=== PATIENT | female | born 2000 | race African-American/Black ===

== ENCOUNTER 2022-12-26 11:36 | Outpatient (CLI) | payer OTHER, SELFPAY ==
--- NOTE | ~2022-12-26 | US_ITS ---
US thyroid INDICATION: Nontoxic goiter TECHNIQUE: Real-time sonographic images of the thyroid gland were obtained. COMPARISON: No prior studies for comparison. FINDINGS: The right thyroid lobe measures 5.3 x 1.7 x 1.6 cm. The left thyroid lobe measures 4.5 x 1 .8 x 1.2 cm. There is normal echotexture and echogenicity throughout the thyroid gland. No discrete n odules identified. Normal vascular flow is present. IMPRESSION: 1. Normal thyroid without discrete nodule or abnormal vascularity. Reviewed, dictated and finalized at location B. L RULE INSPECTOR
[2022-12-26 13:17] LABS: Thyroid Stimulating Hormone 0.678 uIU/mL (0.465-4.680)
== END 2022-12-26 11:37 | disposition home or self-care (01) ==
PROVIDERS: PCP Obstetrics & Gynecology; Visit Provider Obstetrics & Gynecology
DX: E04.9 Nontoxic goiter, unspecified (principal)
CPT/HCPCS: 36415; 76536; 84439; 84443

== ENCOUNTER 2023-10-12 10:45 | Outpatient (CLI) | payer OTHER, SELFPAY ==
[2023-10-12 13:33] LABS: HIV 1/2 Ab P24 Ag Result Negative (Negative)
[2023-10-12 14:09] LABS: Rapid Plasma Reagin Non-Reactive (NonReactive)
[2023-10-12 14:11] LABS: Hepatitis C Virus Antibody Negative (Negative)
== END 2023-10-12 10:46 | disposition home or self-care (01) ==
LOC: ANHLAB 10:54
PROVIDERS: PCP Family Medicine; Visit Provider Obstetrics & Gynecology
DX: Z11.3 Encounter for screening for infections with a predominantly sexual mode of transmission (principal)
CPT/HCPCS: 36415; 86592; 86703; 86803; G0432

== ENCOUNTER 2023-11-20 13:09 | Outpatient (CLI) | payer OTHER, SELFPAY ==
--- NOTE | ~2023-11-20 | US_ITS ---
US breast LT limited INDICATION: Focal left breast swelling TECHNIQUE: Dedicated Limited left breast ultrasound COMPARISON: No prior studies for comparison. FINDINGS: The left breast is composed of normal heterogeneous echotexture without focal solid or cyst ic mass. IMPRESSION: 1: Normal limited left breast ultrasound. BI-RADS CATEGORY 1 - NEGATIVE Reviewed, dictated and finalized at location A. SPECIALIST
== END 2023-11-20 13:10 | disposition home or self-care (01) ==
PROVIDERS: PCP Family Medicine; Visit Provider Obstetrics & Gynecology
DX: N63.22 Unspecified lump in the left breast, upper inner quadrant (principal)
CPT/HCPCS: 76642

== ENCOUNTER 2024-04-23 15:00 | Outpatient (CLI) | payer OTHER, SELFPAY ==
--- NOTE | ~2024-04-23 | US_ITS ---
EXAMINATION: US OB <=14 wk fetus w TV INDICATION: N91.2 - Amenorrhea, unspecified TECHNIQUE: Sonography of the pelvis was performed by transabdominal and transvaginal techniques. COMPARISON: None. RESULT: Uterus: 7.6 x 5.6 x 5.8 cm. Retroverted and anteflexed. Homogenous myometrium. Intrauterine gestational sac: Single present. Yolk sac: 0.6 cm. Embryo: Single present. Guys rump length: 1.25 cm, corresponding gestational age 7 weeks, 3 days. G estational heart rate: present 145 bpm. Subgestational hematoma: Absent . Right ovary: 3.6 x 1.7 x 1.4 cm. Vascular flow is present. No adnexal mass. Left ovary: 3.9 x 1.9 x 2.8 cm. Vascular flow is present. No adnexal mass. Pelvis free fluid: None. IMPRESSION: Single, live intrauterine gestation. Estimated Gestational Age: 7 weeks, 3 days by crown rump length. BROOKS by ultrasound 12/07/2024. Reviewed, dictated and finalized at location K. IMPRESSION: Single, live intrauterine gestation. Estimated Gestational Age: 7 weeks, 3 days by crown rump length. BROOKS by ultras ound 12/07/2024.
== END 2024-04-23 15:01 ==
PROVIDERS: PCP Obstetrics & Gynecology; Visit Provider Nurse Practitioner Obstetrics & Gynecology
DX: N91.2 Amenorrhea, unspecified (principal)
CPT/HCPCS: 76801; 76817

== ENCOUNTER 2024-06-04 11:35 | Outpatient (CLI) | payer OTHER, SELFPAY ==
[2024-06-04 12:13] LABS: Basophils Percent Auto 0.2 % (0.2-1.2); Eosinophils Absolute Auto 0.1 K/mm3 (0-0.3); Eosinophils Percent Auto 1.4 % (0-4.4); Hematocrit 35.1 % (37.0-47.0); Hemoglobin 11.5 g/dL (12.0-15.0); Immature Granulocyte Absolute 0.05 K/mm3 (0.00-0.031); Immature Granulocyte Percent A 0.5 % (0-0.5); Lymphocytes Absolute Auto 1.66 K/mm3 (0.9-3.2); Lymphocytes Percent Auto 16.9 % (18.3-44.2); Mean Corpuscular HGB Conc 32.8 g/dl (32-36); Mean Corpuscular Hemoglobin 27.7 pg (26-34); Mean Corpuscular Volume 84.6 fl (80-100); Mean Platelet Volume 10.5 fl (7.4-10.4); Monocytes Absolute Auto 1.1 K/mm3 (0.1-0.6); Monocytes Percent Auto 11.3 % (2.6-8.5); Neutrophils Absolute Auto 6.9 K/mm3 (1.3-6.7); Neutrophils Percent Auto 69.7 % (45.5-73.1); Platelet Count Result 220 k/mm3 (150-375); Red Blood Count 4.15 M/mm3 (4.2-5.4); Red Cell Distribution Width 12.3 % (11.5-14.5); White Blood Count 9.8 K/mm3 (4.5-10.0)
[2024-06-04 12:31] LABS: Appearance Urine Clear (Clear); Bacteria Urine 2+ /hpf; Bilirubin Urine Negative (Negative); Blood Urine Negative (Negative); Color Urine Yellow (Yellow); Glucose Urine UA Negative (Negative); Ketones Urine Trace mg/dL (Negative); Leukocyte Esterase Ur Negative LEU/UL (Negative); Nitrate Urine Negative (Negative); Non Pathogenic Casts 0-2; Protein Urine Trace mg/dL (Negative); RBC Urine 0-2 /hpf (0-2); Specific Grav Ur 1.033 (1.001-1.035); Squamous Epithelial Cell Urine Moderate /hpf (Few)
[2024-06-04 12:41] LABS: Hemoglobin A1C 5.6 % (<5.7)
[2024-06-04 12:42] LABS: Add Urine Microscopic? YES
[2024-06-04 13:07] LABS: HIV 1/2 Ab P24 Ag Result Negative (Negative)
[2024-06-04 13:33] LABS: Hepatitis B Surface Antigen Negative (Negative); Rubella IgG Antibody 45.7 IU/ML
[2024-06-04 13:48] LABS: Hepatitis C Virus Antibody Negative (Negative)
[2024-06-05 06:16] LABS: Rapid Plasma Reagin Non-Reactive (NonReactive)
[2024-06-05 18:28] LABS: Hematocrit 36.5 % (35.0-45.0); Hemoglobin 11.7 g/dL (11.7-15.5); MCH 27.3 pg (27.0-33.0); MCV 85.1 fL (80.0-100.0); RDW 12.2 % (11.0-15.0); Red Blood Cell Count 4.29 Million/uL (3.80-5.10)
== END 2024-06-04 11:36 | disposition home or self-care (01) ==
LOC: ANHLAB 11:37
PROVIDERS: PCP Obstetrics & Gynecology; Visit Provider Obstetrics & Gynecology
DX: Z34.90 Encounter for supervision of normal pregnancy, unspecified, unspecified trimester (principal); Z3A.00 Weeks of gestation of pregnancy not specified
CPT/HCPCS: 36415; 81001; 83021; 83036; 85025; 86592; 86703; 86762; 86787; 86803; 86850; 86900; 86901; 87086; 87340; G0432

== ENCOUNTER 2024-08-31 09:10 | Outpatient (CLI) | payer OTHER, SELFPAY ==
[2024-08-31 10:46] LABS: Basophils Percent Auto 0.3 % (0.2-1.2); Eosinophils Absolute Auto 0.2 K/mm3 (0-0.3); Eosinophils Percent Auto 1.4 % (0-4.4); Hematocrit 34.5 % (37.0-47.0); Hemoglobin 10.8 g/dL (12.0-15.0); Immature Granulocyte Absolute 0.08 K/mm3 (0.00-0.031); Immature Granulocyte Percent A 0.8 % (0-0.5); Lymphocytes Absolute Auto 1.43 K/mm3 (0.9-3.2); Lymphocytes Percent Auto 13.4 % (18.3-44.2); Mean Corpuscular HGB Conc 31.3 g/dl (32-36); Mean Corpuscular Hemoglobin 27.5 pg (26-34); Mean Corpuscular Volume 87.8 fl (80-100); Mean Platelet Volume 10.7 fl (7.4-10.4); Monocytes Absolute Auto 0.9 K/mm3 (0.1-0.6); Monocytes Percent Auto 8.6 % (2.6-8.5); Neutrophils Percent Auto 75.5 % (45.5-73.1); Platelet Count Result 196 k/mm3 (150-375); Red Blood Count 3.93 M/mm3 (4.2-5.4); Red Cell Distribution Width 12.7 % (11.5-14.5); White Blood Count 10.6 K/mm3 (4.5-10.0)
[2024-08-31 10:55] LABS: Glucose 1 Hour PP 50gm Dose 129 mg/dL
== END 2024-08-31 09:11 | disposition home or self-care (01) ==
LOC: ANHLAB 09:12
PROVIDERS: PCP Obstetrics & Gynecology; Visit Provider Obstetrics & Gynecology
DX: Z34.90 Encounter for supervision of normal pregnancy, unspecified, unspecified trimester (principal)
CPT/HCPCS: 36415; 82947; 85025

== ENCOUNTER 2024-10-24 16:51 | Outpatient (CLI) | payer OTHER, SELFPAY ==
[2024-10-24 18:18] LABS: HIV 1/2 Ab P24 Ag Result Negative (Negative)
[2024-10-25 13:49] LABS: Rapid Plasma Reagin Non-Reactive (NonReactive)
== END 2024-10-24 16:52 | disposition home or self-care (01) ==
LOC: ANHLAB 16:52
PROVIDERS: PCP Obstetrics & Gynecology; Visit Provider Obstetrics & Gynecology
DX: Z34.90 Encounter for supervision of normal pregnancy, unspecified, unspecified trimester (principal)
CPT/HCPCS: 36415; 86592; 86703; G0432

== ENCOUNTER 2024-11-01 13:33 | Outpatient (CLI) | payer OTHER, SELFPAY ==
[2024-11-01 13:57] LABS: Hematocrit 34.1 % (37.0-47.0); Hemoglobin 10.9 g/dL (12.0-15.0); Mean Corpuscular Hemoglobin 27.3 pg (26-34); Mean Corpuscular Volume 85.5 fl (80-100); Mean Platelet Volume 11.6 fl (7.4-10.4); Platelet Count Result 158 k/mm3 (150-375); Red Blood Count 3.99 M/mm3 (4.2-5.4); Red Cell Distribution Width 13.1 % (11.5-14.5); White Blood Count 8.8 K/mm3 (4.5-10.0)
== END 2024-11-01 13:34 | disposition home or self-care (01) ==
LOC: ANHLAB 13:34
PROVIDERS: PCP Obstetrics & Gynecology; Visit Provider Nurse Practitioner Obstetrics & Gynecology
DX: Z34.90 Encounter for supervision of normal pregnancy, unspecified, unspecified trimester (principal); Z3A.00 Weeks of gestation of pregnancy not specified
CPT/HCPCS: 36415; 85027

== ENCOUNTER 2024-11-20 16:10 | Outpatient (CLI) | payer OTHER, SELFPAY ==
--- NOTE | ~2024-11-20 | US_ITS ---
US axilla RT 11/20/2024 16:45 Indication: Localized swelling Procedure: High-resolution ultrasound of the right axilla Comparison: No prior studies for comparison. Findings: Normal heterogeneous echotexture without focal solid or cystic mass. No abnormal vascularit y. No abnormal fluid. Impression: 1: Normal soft tissue ultrasound of the right axilla without discrete mass. Reviewed, dictated and finalized at location A. EMIC MANAGER Impression: 1: Normal soft tissue ultrasound of the right axilla without discrete mass.
== END 2024-11-20 16:11 | disposition home or self-care (01) ==
PROVIDERS: PCP Family Medicine; Visit Provider Nurse Practitioner Obstetrics & Gynecology
DX: R22.31 Localized swelling, mass and lump, right upper limb (principal)
CPT/HCPCS: 76882

== ENCOUNTER 2024-12-02 15:16 | Observation (INO) | payer OTHER, SELFPAY ==
--- NOTE | 2024-12-02 15:16 | OBADM ---
This patient, Yaakov Ro, admitted to the OB room Labor/Delivery/Recovery 105 for observation. Patient/family oriented to hospital policies and general routines including ID bracelet, bed and alarms, visiting hours, pain management, procedures, bathroom and other care routines, personal items, smoking policy, room service/diet, and visiting hours. Patient/Family are encouraged to report perceived risks to care and to ask questions if they do not understand what they are told or what they should do.
--- NOTE | 2024-12-02 16:27 | PC.NURSE ---
Dr. Blancas notified of pt having complaints of abdominal tightening. SVE 1.5/50/-3 unchanged from office check last week. Pt to see Dr. Blancas in the office tomorrow. Discharge order received.
[2024-12-02 16:43] VITALS: BP 136/73; PULSE 96
--- OUTSIDE RECORDS SUMMARY | 2024-12-02 16:49 | XMS_ITS | Encounter Summary ---
Author Organization [facility] Address [address] [place] [address] Care Team Providers Care Quality Assurance Supervisor Trim Name Role Phone Unavailable Primary Care Provider Unavailabl e Encounter Details Date Type Department Care Team (Late st Contact Info) Description 11/28/2024 External Device Data STL ABSTRACTION Provider, Abstract NO ADDRESS ON FILE Social History Tobacco Use Types Packs/Day Years Used Date Smoking Tobacco: Former Cigarettes Estimated Date of Delivery Comme nts Yes 12/07/2024 Sex and Gender Information Value Date Recorded Sex Assigned at Not on file Legal Sex Female 4:07 PM CDT Gender Identity Not on file Sexual Orientation Not on file documented as of this encounter Plan of Treatment Upcoming Encounters Date Type Department Care Team (Late st Contact Info) Description 12/05/2024 1:00 PM DENTAL TECHNOLOGIST Appointment [facility] Maternal and Health [facility] [address] [place] [id number] Radha Feliciano MD [address] [facility] [address] [place] [id number] documented as of this encounter Visit Diagnoses Not on filedocumented in this encounter
--- OUTSIDE RECORDS SUMMARY | 2024-12-02 16:49 | XMS_ITS | Continuity of Care Document ---
Author Organization [facility] Address [address] [place] [address] Phone Care Team Providers Care Administrative Aide Name Role Phone [facility] [employer] Unavailable Unavail able Kemi Manzanares Unavailable Unavailable Procedures Procedure Date Frame - Up To $135 Polycarb Lens Per Lens SV Poly Carb Sph +/- 7.12 To +/- 20 D Ma Eye Exam & Treatment Refraction Eye Exam & Treatment Refraction Frame - Up To $99 SV Poly Carb Sph +/- 7.12 To +/- 20 D Ap Polycarb Lens Per Lens Eye Exam, New Patient Advance Directives Directive Yes / No Effective Date File Name No Information Encounters Encounter Description Practice Location Reason(s) For Visit Diagnoses Date Provider Providers Copied on Encounter [facility], [address] [facility] [address], [place], [place], [id number], [place] tel:[phone] [facility] No Information 0 [facility] [employer] . [address] [facility], [facility] [address], [place], [place], [address], [place]. tel:[phone] Referring Provider: Mike Millan, [address], [place], [address]. tel:[phone] sulting Provider: Kemi Manzanares, [address] [place] [address], [address]. tel:[phone] [facility], [address], [place], [place], [address], tel:[phone] [facility] No Information May-0 6-201 0 Monahan OD Mike. [address], [place], [place], [facility], . tel:[phone] [facility], [address] [place] [address] [address], [place], [place], [address], [place] tel:[phone] [facility] No Information May-0 1-200 9 Monahan OD Mike. [address], [place], [address], . tel:[phone] [facility], [address] [place] [address] [address], [place], [place], [address], tel:[phone] [facility] No Information Apr-3 0-200 8 [facility] [employer] . [address] [facility], [address], [place], [place], [address], . tel:[phone] Referring Provider: Mike Monahan OD A, [facility], [facility], [place], [address]. tel:[phone] sulting Provider: Kemi Manzanares, [address] [place] [address], [facility]. tel:[phone] [facility], [address] [place] [address] [address], [place], [place], [address], [place] tel:[phone] [facility] No Information Apr-2 5-200 8 Monahan OD Mike. [address], [place], [address], . tel:[phone] Family History Family Member Type Diagnosis Age At Onset No Information Payers Payer name Insurance type Covered libertarian ID James velasquez(s) [employer] Plan CI [id number] Social History Type Description Quantity Date Captured Comments Sex Female Smoking Status No Information Chief Complaint And Reason For Visit No Information Reason For Referral Reason For Referral No Information History Of Present Illness Encounter Date Complaint History Of Prese nt Illness No Information Functional Status Date Functional Assessmen t No Information Instructions Date Instruction Additional Infor mation No Information Assessments Type Assessment Date No Information Patient Care Teams Name Effective Dates (start - stop) Status Members No Information
--- OUTSIDE RECORDS SUMMARY | 2024-12-02 16:49 | XMS_ITS | Referral Summary ---
Author Organization [facility] Address [address] [facility] [place] [address] Care Team Providers Care Baking Assistant Name Role Phone Unavailable Primary Care Provider Unavailabl e Source Comments [facility],non-owned Affiliates and Associated Physician Practices is amultiple site organization consisting of ambulatory clinics and hospital sitesin [place], [place], [place] and [place]. This disclosure is being madepursuant to the Care Everywhere program and may not contain all information available regarding this patient. Last updated 18.[facility] Social History Tobacco Use Types Packs/Day Years Used Date Smoking Tobacco: Never Assessed Sex and Gender Information Value Date Recorded Sex Assigned at Not on file Gender Identity Not on file Sexual Orientation Not on file Plan of Treatment Not on file
--- OUTSIDE RECORDS SUMMARY | 2024-12-02 16:49 | XMS_ITS | Patient Health Summary ---
Author Organization [facility] Address [address] [facility] [place] [address] Care Team Providers Care Pediatric Anesthesiologist Name Role Phone Unavailable Primary Care Provider Unavailabl e Note from [facility],non-owned Affiliates and Associated Physician Practices is amultiple site organization consisting of ambulatory clinics and hospital sitesin [place], [place], [place] and [place]. This disclosure is being madepursuant to the Care Everywhere program and may not contain all information available regarding this patient. Last updated 18.[facility] Social History Tobacco Use Types Packs/Day Years Used Date Smoking Tobacco: Never Assessed Sex and Gender Information Value Date Recorded Sex Assigned at Not on file Gender Identity Not on file Sexual Orientation Not on file
--- OUTSIDE RECORDS SUMMARY | 2024-12-02 16:50 | XMS_ITS | Clinical Summary ---
Author Organization [facility] Address [address] [place] [address] Care Team Providers Care Business Process Coordinator Name Role Phone Unavailable Primary Care Provider Unavailabl e Source Comments [facility],non-owned Affiliates and Associated Physician Practices is amultiple site organization consisting of ambulatory clinics and hospital sitesin [place], [place], [place]. This disclosure is being madepursuant to the Care Everywhere program and may not contain all information available regarding this patient. Last updated 18.[facility] [employer] Social History Tobacco Use Types Packs/Day Years Used Date Smoking Tobacco: Never Assessed Sex and Gender Information Value Date Recorded Sex Assigned at Not on file Gender Identity Not on file Sexual Orientation Not on file Plan of Treatment Health Maintenance Due Date Last Done Comments PAP SMEAR 1999 HIV SCREENING 2014 HPV VACCINE (1 - 3-dose series) 2014 CHLAMYDIA/GONORRHEA SCREENING 2015 HEPATITIS C SCREENING 06/23/2017 DTAP/TDAP/TD VACCINES (1 - Tdap) 2018 HEPATITIS B VACCINE (1 of 3 - 19+ 3-dose series) 2018 COVID-19 VACCINE (1 - 2023-2 5 season) 2024 INFLUENZA VACCINE (#1) 2024 DEPRESSION SCREENING 11/06/2024 ZOSTER VACCINE (1 of 2) 2049 HIB VACCINE Aged Out No longer eligi ble based on patient's age to complete this topic MENINGOCOCCAL (Group B) VACCINE Aged Out No longer eligible based on patient's age to complete this topic MENINGOCOCCAL VACCINE Aged Out No kp kapil eligible based on patient's age to complete this topic PNEUMOCOCCAL VACCINE Aged Out No long er eligible based on patient's age to complete this topic
--- OUTSIDE RECORDS SUMMARY | 2024-12-02 16:50 | XMS_ITS | Clinical Summary ---
Author Organization [facility] Address [address] [place] [address] Phone Care Team Providers Care Supervisor Word Processing Name Role Phone Unavailable Primary Care Provider Unavailabl e Allergies Active Allergy Reactions Criticality Noted Date Comments Amoxicillin Hives High 11/22/2024 Medications ferrous fumarate (FERRETTS) 325 mg (106 mg iron) Tablet Take 325 mg by mouth daily at bedtime. Active VIT-IRON FUM-FOLIC AC ORAL Take 1 Tablet by mouth daily. Active Active Problems Problem Noted Date Diagnosed Date renal anomaly, single gestation 08/06/2024 Estimated Date of Delivery Comme nts Yes 12/07/2024 Encounters Date Type Department Care Team Description 11/28/2024 External Device Data STL ABSTRACTION Provider, Abstract 11/22/2024 3:40 PM PROFESSIONAL GOLF TOURNAMENT PLAYER Video Visit [facility] [address] [place] [address]. [address] [place] [address] Angel Chambers MD renal anomaly, single gestation (Primary Dx) 11/18/2024 Telephone [facility] [address] [place] [address] Angel Chambers MD Needs Appointment 10/28/2024 1:17 PM PROFESSIONAL GOLF TOURNAMENT PLAYER - 10/28/2024 11:59 PM PROFESSIONAL GOLF TOURNAMENT PLAYER Hospital Encounter [facility] Maternal and Health [facility] [address] [place] [address] Radha Feliciano MD Discharge Disposition: Home or Self Care 10/02/2024 8:27 AM PROFESSIONAL GOLF TOURNAMENT PLAYER - 10/02/2024 11:59 PM PROFESSIONAL GOLF TOURNAMENT PLAYER Hospital Encounter [facility] [address] [place] [address] Marce Bynum MD Discharge Disposition: Home or Self Care 09/02/2024 3:30 PM CDT - 09/02/2024 11:59 PM CDT Hospital Encounter [facility] [address] [place] [address] Jethro Sloan MD Discharge Disposition: Home or Self Care from Last 3 Months Social History Tobacco Use Types Packs/Day Years Used Date Smoking Tobacco: Former Cigarettes Tobacco Cessation:Counseling Given: Not Answered Estimated Date of Delivery Comme nts Yes 12/07/2024 Sex and Gender Information Value Date Recorded Sex Assigned at Not on file Legal Sex Female 4:07 PM CDT Gender Identity Not on file Sexual Orientation Not on file Last Filed Vital Signs Vital Sign Reading Time Taken Comments Blood Pressure - - Pulse - - Temperature - - Respiratory Rate - - Oxygen Saturation - - Inhaled Oxygen Concentration - - Weight 114.8 kg (253 lb) 11/22/2024 3:50 PM PROFESSIONAL GOLF TOURNAMENT PLAYER Height 162.6 cm (5' 4 ) 11/22/2024 3:50 PM PROFESSIONAL GOLF TOURNAMENT PLAYER Body Mass Index 43.43 11/22/2024 3:50 PM PROFESSIONAL GOLF TOURNAMENT PLAYER Plan of Treatment Upcoming Encounters Date Type Department Care Team (Late st Contact Info) Description 12/05/2024 1:00 PM PROFESSIONAL GOLF TOURNAMENT PLAYER Appointment [facility] [address] [place] [address] Radha Feliciano MD [address] [facility] [address] [place] [phone] Health Maintenance Due Date Last Done Comments HPV VACCINES (1 - 3-dose series) 2014 DTAP/TDAP/TD VACCINES (1 - Tdap) 2018 HEPATITIS B VACCINES (1 of 3 - 19+ 3-dose series) 06/07 CERVICAL CANCER SCREENING 2020 INFLUENZA VACCINE (#1) 2024 Preventative Visit- Commercial 11/06/2024 RSV VACCINE (60+ or ) (No Doses Required) Comp leted Procedures Procedure Name Priority Date/Time Associated Diagnosis Comments US OB FOLLOW UP PER FETUS Routine 10/28/2024 2:26 PM PROFESSIONAL GOLF TOURNAMENT PLAYER Encounter for repeat ultrasound of pyelectasis in vidal , antepartum US OB FOLLOW UP PER FETUS Routine 10/02/2024 9:14 AM PROFESSIONAL GOLF TOURNAMENT PLAYER 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 Anatomical Region Laterality Modality Pelvis Ultrasound 10/28/2024 2:02 PM PROFESSIONAL GOLF TOURNAMENT PLAYER Narrative 10/28/2024 2:44 PM PROFESSIONAL GOLF TOURNAMENT PLAYER STL FOLLOW UP ----- Pat. Name: YAAKOV RO Study Date: 10/28/2024 2:02pm Pat. NO: [id number] Referring ??MD: JAYLEN CHIU MD Site: [place] It Analyst: Rita Tadoe RDMS : 2000 Age: 24 ----- INDICATION ----- Screening Follow-Up Maternal Obesity (BMI>40) Complicating Renal Anomaly, Other, Unspecified CODING ----- Diagnoses ? Z3A.34: Weeks of gestation ?O35.8XX0: Maternal care for other (suspected) abnormality and damage ?O99.213: Obesity complicating ?Z3A.34: Weeks of gestation ?O99.213: Obesity complicating ?Z36.2: Encounter for other screening follow-up ?Z3A.34: Weeks of gestation ?O99.213: Obesity complicating HISTORY ----- OB History ? 1. Para 0 METHOD ----- Transabdominal ultrasound examination ----- Vidal . Number of fetuses: 1 DATING ----- GA by prior assessment 34 w + 2 d BROOKS by prior assessment: 12/07/2024 Ultrasound examination on: 10/28/2024 GA by U/S based upon: AC, BPD, EFW, Femur, HC GA by U/S 34 w + 2 d BROOKS by U/S: 12/07/2024 Method of dating: Restore dating from previous exam Assigned: based on stated BROOKS, selected on 08/01/2024 Assigned GA 34 w + 2 d Assigned BROOKS: 12/07/2024 BIOMETRY ----- BPD ?85.2 ? mm ?34w 2d ?50% ?Hadlock OFD ?104.0 ?mm ?34w 0d ?45% ?Priti HC ? 302.3 ?mm ?33w 4d ?7% ?Hadlock AC ? 317.9 ?mm ?35w 5d ?89% ?Hadlock Femur ?64.9 ? mm ?33w 3d ?21% ?Hadlock HC / AC ?0.95 ? 8% ?Nicolaides Weight Calculation: EFW ? 2,506 ? g ? 34w 4d ?58% ?Hadlock EFW (lb,oz) ? 5 lb 8 ?oz EFW by ?Hadlock ([id number]) Extremities / Bony Struc Biometry: FL / BPD ?0.76 FL / HC ? 0.21 FL / AC ? 0.20 GENERAL EVALUATION ----- Cardiac activity present. FHR 155 bpm. movements: present. Presentation: cephalic Placenta: Placental site: posterior Umbilical cord: Cord vessels: 3 vessel cord. Amniotic fluid: Amount of AF: normal amount. MVP 5.7 cm. KENDRA 16.2 cm. Q1 5.7 cm, Q2 3.4 cm, Q3 3.9 cm, Q4 3.2 cm ANATOMY ----- The following structures appear abnormal: Abdomen ? Left kidney: previously noted pelvic kidney, UTD. The following structures appear normal: Head / Neck ? Cranium. Midline falx. Cavum septi pellucidi. Heart / Thorax ?Diaphragm. Abdomen ? Stomach. Right kidney. Bladder. GROWTH OVERVIEW ----- Exam date ? GA ?BPD (mm) ? HC (mm) ?AC (mm) ? FL (mm) ?HL (mm) ?EFW (g) 08/01/2024 ?21w 5d ?53.6 ?71% ?191.3 ? 26% ?171.4 ?56% ?38.7 ?64% ?37.4 ?89% ?481 ? 66% 09/02/2024 ?26w 2d ?67.9 ?75% ?247.9 ? 46% ?216.9 ?37% ?48.4 ?34% ? 922 ? 40% 10/02/2024 ?30w 4d ?77.9 ?60% ?282.4 ? 24% ?274.9 ?75% ?56.9 ?18% ? 1,670 ? 50% 10/28/2024 ?34w 2d ?85.2 ?50% ?302.3 ? 7% ? 317.9 ?89% ?64.9 ?21% ? 2,506 ? 58% COMMENT ----- Patient's name and date of were verified by the civil preparedness coordinator prior to the exam IMPRESSION ----- Impression: Vidal viable intrauterine at 34w 2d in cephalic presentation. Estimated weight is 2506 g (58%ile) with abdominal circumference at the 89%ile. Amniotic fluid volume is normal amount (Amniotic fluid index = 16.2 cm, maximum vertical pocket = 5.7 cm). Left kidney with pyelectasis and megaureter visualized, similar to prior examination. Recommendation: Follow up ultrasound for growth in 4 weeks. Thank you for inviting us to participate in your patient's care. Procedure Note Luisa Rasheed MD - 10/28/2024 STL FOLLOW UP ----- Pat. Name:Gabriela RO Date:10/28/2024 2:02pm Pat. NO: [id number] MD:JAYLEN CHIU [facility]Rita Tadeo RDMS :2000Age:24 ----- INDICATION ----- Screening Follow-Up Maternal Obesity (BMI>40) Complicating Renal Anomaly, Other, Unspecified CODING ----- Diagnoses Z3A.34: Weeks of gestation O35.8XX0: Maternal care for other (suspected) abnormality and damage O99.213: Obesity complicating Z3A.34: Weeks of gestation O99.213: Obesity complicating Z36.2: Encounter for other screeningfollow-up Z3A.34: Weeks of gestation O99.213: Obesity complicating HISTORY ----- OB History 1. Para 0 METHOD ----- Transabdominal ultrasound examination ----- Vidal . Number of fetuses: 1 DATING ----- GA by prior [id number] w + 2 d BROOKS by prior assessment:12/07/2024 Ultrasound examination on:10/28/2024 GA by U/S based upon:AC, BPD, EFW, Femur, HC GA by U/S34 w + 2 d BROOKS by U/S:12/07/2024 Method of dating:Restore dating from previous exam Assigned:based on stated BROOKS, selected on 08/01/2024 Assigned GA34 w + 2 d Assigned BROOKS:12/07/2024 BIOMETRY ----- BPD 85.2 mm 34w 2d 50%Hadlock OFD 104.0 mm 34w 0d 45%Priti HC 302.3 mm 33w 4d 7%Hadlock AC 317.9 mm 35w 5d 89%Hadlock Femur 64.9 mm 33w 3d 21%Hadlock HC / AC 0.95 8%Nicolaides Weight Calculation: EFW 2,506 g 34w 4d58% Hadlock EFW (lb,oz) 5 lb 8 oz EFW by Hadlock ([id number]-TP-[id number]-FL) Extremities / Bony Struc Biometry: FL / BPD 0.76 FL / HC 0.21 FL / AC 0.20 GENERAL EVALUATION ----- Cardiac activity present. FHR 155 bpm. movements: present.Presentation: cephalic Placenta: Placental site: posterior Umbilical cord: Cord vessels: 3 vessel cord. Amniotic fluid: Amount of AF: normal amount. MVP 5.7 cm. KENDRA 16.2 cm. Q15.7 cm, Q2 3.4 cm, Q3 3.9 cm, Q4 3.2 cm ANATOMY ----- The following structures appear abnormal: Abdomen Left kidney: previously noted pelvic kidney,UTD. The following structures appear normal: Head / Neck Cranium. Midline falx. Cavum septi pellucidi. Heart / Thorax Diaphragm. Abdomen Stomach. Right kidney. Bladder. GROWTH OVERVIEW ----- Exam date GA BPD (mm) HC (mm) AC (mm) FL(mm) HL (mm) EFW (g) 08/01/2024 21w 5d 53.6 71% 191.3 26% 171.4 56%38.7 64% 37.4 89% 481 66% 09/02/2024 26w 2d 67.9 75% 247.9 46% 216.9 37%48.4 34% 922 40% 10/02/2024 30w 4d 77.9 60% 282.4 24% 274.9 75%56.9 18% 1,670 50% 10/28/2024 34w 2d 85.2 50% 302.3 7% 317.9 89%64.9 21% 2,506 58% COMMENT ----- Patient's name and date of were verified by the civil preparedness coordinator prior tothe exam IMPRESSION ----- Impression: Vidal viable intrauterine at 34w 2d in cephalicpresentation. Estimated weight is 2506 g (58%ile) with abdominal circumference atthe 89%ile. Amniotic fluid volume is normal amount (Amniotic fluid index = 16.2 cm,maximum vertical pocket = 5.7 cm). Left kidney with pyelectasis and megaureter visualized, similar to priorexamination. Recommendation: Follow up ultrasound for growth in 4 weeks. Thank you for inviting us to participate in your patient's care. us Radha Feliciano MD US ORDERABLES Final Result from Last 3 Months Insurance [place] [facility] [id number]
--- OUTSIDE RECORDS SUMMARY | 2024-12-02 16:50 | XMS_ITS | Referral Summary ---
[facility] Address [address] [place] [address] Care Team Providers Care Credit Products Officer Name Role Phone Unknown, Notinfile Primary Care Provider Unavail able Allergies Active Allergy Reactions Criticality Noted Date Comments Amoxicillin Rash Medium 03/11/2019 Medications norethindrone-e. estradiol-iron (JUNEL 11/25) 1 mg-20 mcg (21)/75 mg (7) per tablet Take 1 tablet by mouth daily Active guaiFENesin-pseu doephedrine (MUCINEX D) 600-60 mg per 12 hr tablet Take 1 tablet by mouth 2 (two) times a day as needed Active Active Problems Problem Noted Date Diagnosed Date Acute lateral meniscus tear of left knee 019 Overview (03/29/2019): Added automatically from request for surgery Complete tear of anterior cruciate ligament of l eft knee 03/29/2019 Overview (03/29/2019): Added automatically from request for surgery Tear of medial meniscus of left knee, current Overview (03/29/2019): Added automatically from request for surgery Social History Tobacco Use Types Packs/Day Years Used Date Smoking Tobacco: Never Smokeless Tobacco: Never Alcohol Use Standard Drinks/Week Comments Never 0 (1 standard drink = 0.6 oz pur e alcohol) AUDIT-C Answer Date Recorded Frequency of Alcohol Consumption Never 04/09/2019 Average Number of Drinks Not on file 019 Frequency of Binge Drinking Not on file 02/2019 Comments No Sex and Gender Information Value Date Recorded Sex Assigned at Not on file Legal Sex Female 11:40 AM CDT Gender Identity Not on file Sexual Orientation Not on file Last Filed Vital Signs Vital Sign Reading Time Taken Comments Blood Pressure 125/85 05/23/2022 11:41 AM CDT Pulse 60 05/23/2022 11:41 AM CDT Temperature 36.4 ??C (97.5 ??F) 04/17/2019 3:40 PM CD T Respiratory Rate 16 04/17/2019 3:40 PM CDT Oxygen Saturation 98% 04/17/2019 3:40 PM CDT Inhaled Oxygen Concentration - - Weight 90.2 kg (198 lb 14.4 oz) 022 11:41 AM CDT Height 162.6 cm (5' 4 ) 05/23/2022 11:4 1 AM CDT Body Mass Index 34.14 05/23/2022 11:41 AM CDT Plan of Treatment Not on file Medical Devices Implanted Type Area Tin Roofer Device Identifier Shelf Expiration Date Model / Serial / Lot Depuy Mitek [id number] Truespan Orthocord Non Absorbable 2 Backstop Braid Needle 12d 2-0 - [id number] Implanted:Qty: 1 on 04/17/2019 by Ganesh Mathew MD at [facility] Left: Knee Depuy Mitek 02/03/2022 [id number] / / [id number] Depuy Mitek [id number] Truespan Orthocord Non Absorbable 2 Backstop Braid Needle 12d 2-0 - [id number] Implanted:Qty: 1 on 04/17/2019 by Ganesh Mathew MD at [facility] Left: Knee Depuy Mitek 02/03/2022 [id number] / / [id number] Depuy Mitek [id number] Truespan Orthocord Non Absorbable 2 Backstop Braid Needle 12d 2-0 - [id number] Implanted:Qty: 1 on 04/17/2019 by Ganesh Mathew MD at [facility] Left: Knee Depuy Mitek 07/06/2021 [id number] / / [id number] Arthrex Inc Ar-1588tn Tightrope Attachable Acl Device Fixation Uhmwpe - [id number] Implanted:Qty: 1 on 04/17/2019 by Ganesh Mathew MD at [facility] Left: Knee Ar[employer]rex Inc 10/05/2021 AR-1588TN / / [id number] Ar[employer] Inc Ar-1588rt Tightrope Acl Right Device Fixation Titanium Uhmwpe Sterile Latex Free - [id number] Implanted:Qty: 1 on 04/17/2019 by Ganesh Mathew MD at [facility] Left: Knee [employer] Inc 08/05/2021 AR-1588RT / / [id number] Ar[employer] Inc Ar-1588tb-4 Tightrope 14mm Attachable Round Concave Button Fixation - [id number] Implanted:Qty: 1 on 04/17/2019 by Ganesh Mathew MD at [facility] Left: Knee [employer]rex Inc 02/04/2024 AR-1588TB-4 / / [id number] [employer] Inc Ar-2324bcc Swivelock C 4.75mm 19.1mm Closed Eyelet Vent [place] Suture - [id number] Implanted:Qty: 1 on 04/17/2019 by Ganesh Mathew MD at [facility] Left: Knee [employer] Inc 01/03/2021 AR-2324BCC / / [id number] Insurance eReplicant [facility] CHOICE PLUS [facility] H[facility]/PPO Address: [address] [address] [place] [address] Care Teams Credit Products Officer Relationship Specialty Start Date End Date Unknown, Notinfile PCP - General 03/08/19
--- NOTE | 2024-12-26 09:18 | PM.OBTRLD ---
OB - Triage/Final Diagnosis Visit Information Comments/Additional reasons for admission: I have assessed the risk for this patient, Yaakov Ro, and determined that she would benefit from observation care. Final Diagnosis (1) Threatened labor: Code(s): O47.9 - False labor, unspecified Status: Acute
== END 2024-12-02 16:51 | disposition home or self-care (01) ==
LOC: ANHLDR 16:31
PROVIDERS: Admitting Provider Obstetrics & Gynecology; Visit Provider Obstetrics & Gynecology
DX: O47.1 False labor at or after 37 completed weeks of gestation (principal); Z3A.39 39 weeks gestation of pregnancy
CPT/HCPCS: 59025; G0378; G0379

== ENCOUNTER 2024-12-03 13:13 | Outpatient (CLI) | payer OTHER, SELFPAY ==
[2024-12-03] VITALS (8 sets, daily range): BP systolic 112–125; BP diastolic 63–70; PULSE 67–84; BMI 43.3
--- NOTE | ~2024-12-03 | US_ITS ---
EXAMINATION: US OB limited DATE: 12/03/2024 15:27 INDICATION: Hypertension during third trimester . Assess amniotic fluid index. TECHNIQUE: Real-time ultrasound of the pelvis was performed. The interpreting radiologist was not pre sent for the study. COMPARISON: None. FINDINGS: There is a single living fetus in vertex presentation. The placenta is posterior. heart rate i s 141 beats per minute (bpm). The amniotic fluid index is 11.0 cm, which is normal. IMPRESSION: 1. Single living fetus in vertex presentation with heart rate of 141 bpm. 2. Normal amniotic fluid index of 11.0 cm. Reviewed, dictated and finalized at location A. [employer] IMPRESSION: 1. Single living fetus in vertex presentation with heart rate of 141 bpm . 2. Normal amniotic fluid index of 11.0 cm.
[2024-12-03 13:57] LABS: Hematocrit 34.4 % (37.0-47.0); Hemoglobin 11.1 g/dL (12.0-15.0); Mean Corpuscular HGB Conc 32.3 g/dl (32-36); Mean Corpuscular Hemoglobin 28.1 pg (26-34); Mean Corpuscular Volume 87.1 fl (80-100); Mean Platelet Volume 12.2 fl (7.4-10.4); Platelet Count Result 145 k/mm3 (150-375); Red Blood Count 3.95 M/mm3 (4.2-5.4); Red Cell Distribution Width 13.5 % (11.5-14.5); White Blood Count 8.2 K/mm3 (4.5-10.0)
--- OUTSIDE RECORDS SUMMARY | 2024-12-03 13:57 | XMS_ITS | Referral Summary ---
Author Organization [facility] Address [address] [place] [address] Care Team Providers Care Special Education Curriculum Specialist Name Role Phone Unavailable Primary Care Provider Unavailabl e Source Comments [facility],non-owned Affiliates and Associated Physician Practices is amultiple site organization consisting of ambulatory clinics and hospital sitesin [place], [place], [place] and [place]. This disclosure is being madepursuant to the Care Everywhere program and may not contain all information available regarding this patient. Last updated 18.[facility] Social History Tobacco Use Types Packs/Day Years Used Date Smoking Tobacco: Never Assessed Sex and Gender Information Value Date Recorded Sex Assigned at Not on file Gender Identity Not on file Sexual Orientation Not on file Plan of Treatment Not on file
--- OUTSIDE RECORDS SUMMARY | 2024-12-03 13:57 | XMS_ITS | Clinical Summary ---
Author Organization [facility] Address [address] [place] [address] Care Team Providers Care Salesperson Trailers [employer] Name Role Phone Unknown, Notinfile Primary Care Provider Unavail able Allergies Active Allergy Reactions Criticality Noted Date Comments Amoxicillin Rash Medium 03/11/2019 Medications norethindrone-e. estradiol-iron (JUNE11/25) 1 mg-20 mcg (21)/75 mg (7) per [...] on file Sexual Orientation Not on file Obstetrics History Last Filed Vital Signs Vital Sign Reading [...] 05/23/2022 11:41 AM CDT Plan of Treatment Health Maintenance Due Date Last Done Comments Cervical Cancer Screening 1999 Depression Screening 1999 Hepatitis C Screening 1999 Regular Well Visit/Exam 18-64 2017 DTaP/Tdap/Td Vaccine (7 - Td or Tdap) 07/02/2020 07/02/2010, 06/17/2004, 12/30/2000, Additional history exists Influenza Vaccine (#1) 2024 Varicella Vaccines Completed 06/29/2007, 06/29/2000 HPV Vaccines Completed 03/04/2013, 10/07, 07/19/2012 Pneumococcal vaccine <65 Aged Out No longer eligible based on patient's age to complete this topic Medical Devices Implanted Type Area Stud Master/Mistress Device Identifier Shelf Expiration Date Model / Serial / Lot Depuy Mitek [id number] Truespan Orthocord Non Absorbable 2 Backstop Braid Needle 12d 2-0 - [id number] Implanted:Qty: 1 on 04/17/2019 by Ganesh Mathew MD at [facility] Left: Knee Depuy Mitek 02/03/2022 [id number] / / [id number] Depuy Mitek 681920 Truespan Orthocord Non Absorbable 2 Backstop Braid Needle 12d 2-0 - [id number] Implanted:Qty: 1 on 04/17/2019 by Ganesh Mathew MD at [facility] Left: Knee Depuy Mitek 02/03/2022 [id number] / / [id number] Depuy Mitek [id number] Truespan Orthocord Non Absorbable 2 Backstop Braid Needle 12d 2-0 - [id number] Implanted:Qty: 1 on 04/17/2019 by Ganesh Mathew MD at [facility] Left: Knee Depuy Mitek 07/06/2021 [id number] / / [id number] Ar[employer]rex Inc Ar-1588tn Tightrope Attachable Acl Device Fixation Uhmwpe - [id number] Implanted:Qty: 1 on 04/17/2019 by Ganesh Mathew MD at [facility] Left: Knee [employer] Inc 10/05/2021 AR-1588TN / / [id number] Ar[employer]rex Inc Ar-1588rt Tightrope Acl Right Device Fixation Titanium Uhmwpe Sterile Latex Free - [id number] Implanted:Qty: 1 on 04/17/2019 by Ganesh Mathew MD at [facility] Left: Knee [employer] Inc 08/05/2021 AR-1588RT / / [id number] Ar[employer]rex Inc Ar-1588tb-4 Tightrope 14mm Attachable Round Concave Button Fixation - [id number] Implanted:Qty: 1 on 04/17/2019 by Ganesh Mathew MD at [facility] Left: Knee [employer] Inc 02/04/2024 AR-1588TB-4 / / [id number] [employer] Inc Ar-2324bcc Swivelock C 4.75mm 19.1mm Closed Eyelet Vent [place] Suture - [id number] Implanted:Qty: 1 on 04/17/2019 by Ganesh Mathew MD at [facility] Left: Knee [employer] Inc 01/03/2021 AR-2324BCC / / [id number] Insurance [employer] [facility] CHO[facility] PLUS Care Teams Salesperson Trailers And Motor [employer] Relationship Specialty Start Date End Date Unknown, Notinfile PCP - General 03/08/19
--- OUTSIDE RECORDS SUMMARY | 2024-12-03 13:57 | XMS_ITS | Continuity of Care Document ---
Author Organization [facility] Address [address] [place] [address] Phone Care Team Providers Care Industrial Workers Name Role Phone [facility] Unavailable [...] Diagnoses Date Provider Providers Copied on Encounter [facility], [address] [facility] [address], [place], [place], [id number], [place] tel:[phone] [facility] No Information 0 [facility] . [address] [facility], [facility] [address], [place], [place], [id number], [place]. tel:[phone] Referring Provider: Mike Millan, [address], [place], [address]. tel:[phone] sulting Provider: Kemi Manzanares, [address] [place] [address], [address]. tel:[phone] [facility], [address], [place], [place], [address], tel:[phone] [facility] No Information May-0 6-201 0 Monahan OD Mike. [address], [place], [place], [facility], . tel:[phone] [facility], [address] [place] [address] [address], [place], [place], [address], [place] tel:[phone] [facility] No Information May-0 1-200 9 Monahan OD Mike. [address] , [address], [place], [address], . tel:[phone] [facility], [address] [place] [address] [address], [place], [place], [address], tel:[phone] [facility] No Information Apr-3 0-200 8 Optical Shop [facility] . [address], [address], [place], [place], [address], . tel:[phone] Referring Provider: Mike Monahan OD A, [facility], [place], [address]. tel:[phone] sulting Provider: Kemi Manzanares, [address] [place] [address], [facility]. tel:[phone] [facility], [address] [place] [address] [address], [place], [place], [address], [place] tel:[phone] [facility] No Information Apr-2 5-200 8 Monahan OD Mike. [address], [place], [address], . tel:[phone] Family History Family Member Type Diagnosis Age At Onset No Information Payers Payer name Insurance type Covered green party ID James velasquez(s) [employer] Plan CI [id number] Social History Type Description Quantity Date Captured [...]
--- OUTSIDE RECORDS SUMMARY | 2024-12-03 13:57 | XMS_ITS | Referral Summary ---
Author Organization [facility] Address [address] [place] [address] Care Team Providers Care Tie Man Name Role Phone Unknown, Notinfile Primary Care [...] on file Medical Devices Implanted Type Area Expeditionary Fighting Vehicle Crewman Device Identifier Shelf Expiration Date Model / Serial / Lot Depuy Mitek [id number] Truespan Orthocord Non Absorbable 2 Backstop Braid Needle 12d 2-0 - [id number] Implanted:Qty: 1 on 04/17/2019 by Ganesh Mathew MD at [facility] Left: Knee Depuy Mitek 02/03/2022 [id number] / / [id number] Depuy Mitek 239653 Truespan Orthocord Non Absorbable 2 Backstop Braid Needle 12d 2-0 - [id number] Implanted:Qty: 1 on 04/17/2019 by Ganesh Mathew MD at [facility] Left: Knee Depuy Mitek 02/03/2022 [id number] / / [id number] Depuy Mitek 502419 Truespan Orthocord Non Absorbable 2 Backstop Braid Needle 12d 2-0 - [id number] Implanted:Qty: 1 on 04/17/2019 by Ganesh Mathew MD at [facility] Left: Knee Depuy Mitek 07/06/2021 [id number] / / [id number] Arthrex Inc Ar-1588tn Tightrope Attachable Acl Device Fixation Uhmwpe - [id number] Implanted:Qty: 1 on 04/17/2019 by Ganesh Mathew MD at [facility] Left: Knee Ar[employer]rex Inc 10/05/2021 AR-1588TN / / [id number] Ar[employer]rex Inc Ar-1588rt Tightrope Acl Right Device Fixation Titanium Uhmwpe Sterile Latex Free - [id number] Implanted:Qty: 1 on 04/17/2019 by Ganesh Mathew MD at [facility] Left: Knee [employer] Inc 08/05/2021 AR-1588RT / / [id number] Ar[employer]rex Inc Ar-1588tb-4 Tightrope 14mm Attachable Round Concave Button Fixation - [id number] Implanted:Qty: 1 on 04/17/2019 by Ganesh Mathew MD at [facility] Left: Knee [employer] Inc 02/04/2024 AR-1588TB-4 / / [id number] Ar[employer]rex Inc Ar-2324bcc Swivelock C 4.75mm 19.1mm Closed Eyelet Vent [place] Suture - [id number] Implanted:Qty: 1 on 04/17/2019 by Ganesh Mathew MD at [facility] Left: Knee [employer] Inc 01/03/2021 AR-2324BCC / / [id number] Insurance [employer] [facility] CHO[facility] PLUS Care Teams Tie Man Relationship Specialty Start Date End Date Unknown, Notinfile PCP - General 03/08/19
--- OUTSIDE RECORDS SUMMARY | 2024-12-03 13:57 | XMS_ITS | Patient Health Summary ---
Author Organization [facility] Address [address] [place] [address] Care Team Providers Care Supervisor Quilting Name Role Phone Unavailable Primary Care Provider Unavailabl e Note from [facility],non-owned Affiliates and Associated Physician Practices is amultiple site organization consisting of ambulatory clinics and hospital sitesin [place], [place], [place] and [place]. This disclosure is being madepursuant to the Care Everywhere program and may not contain all information available regarding this patient. Last updated 18.[facility] Social History Tobacco Use Types Packs/Day Years Used Date Smoking Tobacco: Never Assessed Sex and Gender Information Value Date Recorded Sex Assigned at Not on file Gender Identity Not on file Sexual Orientation Not on file
--- OUTSIDE RECORDS SUMMARY | 2024-12-03 13:57 | XMS_ITS | Clinical Summary ---
Author Organization [facility] Address [address] [place] [address] Care Team Providers Care Rivet Tester Name Role Phone Unavailable Primary Care Provider Unavailabl e Source Comments [facility],non-owned Affiliates and Associated Physician Practices is amultiple site organization consisting of ambulatory clinics and hospital sitesin [place], [place], [place] and [place]. This disclosure is being madepursuant to the Care Everywhere program and may not contain all information available regarding this patient. Last updated 18.[facility] Belly Ballot Social History Tobacco Use Types Packs/Day Years [...]
--- OUTSIDE RECORDS SUMMARY | 2024-12-03 13:57 | XMS_ITS | Clinical Summary ---
Author Organization [facility] Address [address] [place] [address] Phone Care Team Providers Care International Travel Consultant Name Role Phone Unavailable Primary Care Provider [...] STL ABSTRACTION Provider, Abstract 11/22/2024 3:40 PM STRAINER CLEANER Video Visit [facility] [address] [place] [address]. [address] [place] [address] Angel Chambers MD renal anomaly, single gestation (Primary Dx) 11/18/2024 Telephone [facility] [address] [facility]. [address] [place] [address] Angel Chambers MD Needs Appointment 10/28/2024 1:17 PM STRAINER CLEANER - 10/28/2024 11:59 PM STRAINER CLEANER Hospital Encounter [facility] [address] [place] [address] Radha Feliciano MD Discharge Disposition: Home or Self Care 10/02/2024 8:27 AM STRAINER CLEANER - 10/02/2024 11:59 PM STRAINER CLEANER Hospital Encounter [facility] [address] [place] [address] Marce Bynum MD Discharge Disposition: Home or Self Care 09/02/2024 3:30 PM CDT - 09/02/2024 11:59 PM CDT Hospital Encounter [facility] [address] [place] [phone] Jethro Sloan MD Discharge Disposition: Home or [...] 114.8 kg (253 lb) 11/22/2024 3:50 PM STRAINER CLEANER Height 162.6 cm (5' 4 ) 11/22/2024 3:50 PM STRAINER CLEANER Body Mass Index 43.43 11/22/2024 3:50 PM STRAINER CLEANER Plan of Treatment Upcoming Encounters Date Type Department Care Team (Late st Contact Info) Description 12/05/2024 1:00 PM STRAINER CLEANER Appointment [facility] [address] [place] [address] Radha Feliciano MD [address] [facility] [address] [place] [id number] Health Maintenance Due Date Last Done Comments [...] UP PER FETUS Routine 10/28/2024 2:26 PM STRAINER CLEANER Encounter for repeat ultrasound of pyelectasis in vidal , antepartum US OB FOLLOW UP PER FETUS Routine 10/02/2024 9:14 AM STRAINER CLEANER 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 Anatomical Region Laterality Modality Pelvis Ultrasound 10/28/2024 2:02 PM STRAINER CLEANER Narrative 10/28/2024 2:44 PM STRAINER CLEANER STL FOLLOW UP ----- Pat. Name: YAAKOV RO Study Date: 10/28/2024 2:02pm Pat. NO: [id number] Referring ??MD: JAYLEN CHIU MD Site: [place] Student Ambassador: Rita Tadeo RDMS : 2000 Age: 24 ----- INDICATION [...] 5 lb 8 ?oz EFW by ?Hadlock ([id number]) Extremities / Bony Struc Biometry: [place] / [...] and date of were verified by the client server developer prior to the exam IMPRESSION ----- Impression: [...] Pat. Name:Gabriela RO Date:10/28/2024 2:02pm Pat. NO: [id number] MD:JAYLEN CHIU [facility]Rita Tadeo RDMS :2000Age:24 ----- INDICATION ----- Screening [...] fetuses: 1 DATING ----- GA by prior [id number] w + 2 d BROOKS by prior [...] 5 lb 8 oz EFW by Hadlock ([id number]-FL) Extremities / Bony Struc Biometry: FL / [...] and date of were verified by the client server developer prior tothe exam IMPRESSION ----- Impression: Vidal [...] Final Result from Last 3 Months Insurance Area [employer] [facility] [id number]
[2024-12-03 14:13] LABS: Alanine Aminotransferase 14 U/L (6-35); Albumin Level 3.8 g/dL (3.5-5.1); Alkaline Phosphatase 141 U/L (38-126); Anion Gap 11 mmol/L (4-12); Aspartate Amino Transferase 24 U/L (14-36); Bilirubin,Total 1.1 mg/dL (0.2-1.3); Blood Urea Nitrogen 8 mg/dL (7-17); Calcium 9.3 mg/dL (8.4-10.2); Carbon Dioxide 21 mmol/L (22-30); Chloride 103 mmol/L (98-107); Estimated Glomerular Filt Rate > 60; Glucose 82 mg/dL (65-110); Sodium 135 mmol/L (137-145); Uric Acid 5.8 mg/dL (2.5-7.5)
[2024-12-03 14:19] LABS: Band Neutrophils Percent 0 % (0-6); Eosinophils Absolute Manual 0.08 K/mm3 (0.02-0.50); Eosinophils Percent Manual 1 % (0-4); Lymphocytes Absolute Manual 2.37 K/mm3 (1.1-4.5); Lymphocytes Percent Manual 29 % (18-44); Monocytes Absolute Manual 0.82 K/mm3 (0.1-0.90); Monocytes Percent Manual 10 % (3-9); Neutrophils Absolute Manual 4.92 K/mm3 (1.7-7.2); Neutrophils Percent Manual 60 % (46-73); Total Cells Counted 100
[2024-12-03 14:20] LABS: Anisocytosis 1+; Platelet Estimate Slightly Decreased (Adequate); Schistocytes None Seen
--- NOTE | 2024-12-03 14:20 | PC.NURSE ---
Dr. Blancas on unit and informed of normal BP's. informed pt having red vaginal spotting post exam/ membrane sweep in the office. Initial urine not sent due to this contamination. Pt was given fluids to drink to help her be able to void again. Pt declined to order a meal or eat a sandwich.
[2024-12-03 15:11] LABS: Add Urine Microscopic? YES; Appearance Urine Clear (Clear); Bacteria Urine Rare /hpf; Bilirubin Urine Negative (Negative); Blood Urine 3+ (Negative); Color Urine Yellow (Yellow); Glucose Urine UA Negative (Negative); Ketones Urine Negative (Negative); Leukocyte Esterase Ur Trace LEU/UL (Negative); Nitrate Urine Negative (Negative); Non Pathogenic Casts 0-2; Protein Urine Trace mg/dL (Negative); RBC Urine 51-100 /hpf (0-2); Specific Grav Ur 1.014 (1.001-1.035); Squamous Epithelial Cell Urine Occasional /hpf (Few); WBC Urine 0-5 /hpf (0-3)
[2024-12-03 15:26] LABS: Creatinine Urine 88.6 mg/dL; Total Protein Urine Random 11 mg/dL; Ur Ttl Prot Creatinine Ratio 0.12 mg/mg (0-0.20)
--- NOTE | 2024-12-03 15:38 | PC.NURSE ---
Dr. Blacnas informed of BP's, reactive NST, KENDRA 11.0 cm, and lab results. Vaginal spotting continues post exam in office. Discussed contractions that pt rates as a 2-3. OK to discharge to home. MD wants pt to complete a 24 hr urine at home.
--- NOTE | 2024-12-03 16:09 | PC.NURSE ---
Dr. Blancas called back and it is OK for pt to wait and start the 24 hr urine Monday when she gets off work. ( Had called the office to let them know pt didn't have a way to do her 24 hr urine at work and would need to miss another day of work unless she could wait until Monday when she got off to start it.) Pt informed it is OK
== END 2024-12-03 16:10 | disposition home or self-care (01) ==
LOC: ANHOBOP 13:18 → ANHLDR 13:20
PROVIDERS: Visit Provider Obstetrics & Gynecology
DX: O13.9 Gestational [pregnancy-induced] hypertension without significant proteinuria, unspecified trimester (principal); Z3A.00 Weeks of gestation of pregnancy not specified
CPT/HCPCS: 36415; 59025; 76815; 80053; 81001; 82570; 84156; 84550; 85025; 99199

== ENCOUNTER 2024-12-05 06:54 | Outpatient (RCR) | payer OTHER, SELFPAY ==
[2024-10-16 07:27] VITALS: BP 115/64; PULSE 94
--- NOTE | ~2024-12-05 | US_ITS ---
EXAMINATION: US OB BPP wo non-stress DATE: 12/05/2024 08:30 INDICATION: Decreased movement. Third trimester. TECHNIQUE: Real-time pelvic ultrasound was performed. COMPARISON: Ultrasound 12/03/24 FINDINGS: There is a single living fetus in vertex presentation. The placenta is posterior. heart rate i s 143 beats per minute (bpm). Biophysical profile performed by the technologist: breathing (30 sec sustained breathing in 30 minutes): 2 out of 2 movement (3 gross body movements in 30 minutes): 2 out of 2 tone (one episode of tcenobh-bzidrpfbz-xyzrgdv limb movement): 2 out of 2 Amniotic fluid pocket (2 cm): 2 out of 2 Total score: 8 out of 8 IMPRESSION: 1. Single living fetus in vertex presentation. 2. Biophysical profile 8 out of 8. Reviewed, dictated and finalized at location A. [employer]ANT
[2024-12-05 08:40] VITALS: BP 134/84; PULSE 79
== END 2025-01-14 23:59 | disposition home or self-care (01) ==
LOC: ANHOBOP 06:54
PROVIDERS: PCP Obstetrics & Gynecology; Visit Provider Obstetrics & Gynecology
DX: O36.8190 Decreased fetal movements, unspecified trimester, not applicable or unspecified (principal)
CPT/HCPCS: 59025; 76819